=== PATIENT | male | born 1955 | race Caucasian/White ===

== ENCOUNTER 2023-11-25 06:22 | Inpatient (IN) | payer OTHER, SELFPAY ==
[2023-11-25] VITALS (18 sets, daily range): BP systolic 69–169; BP diastolic 54–101; BMI 32.3; BMI 31.1
[2023-11-25] MEDS: MAALOX 40 PO (03:13)
--- NOTE | 2023-11-25 03:17 | ED.GENMED ---
History of Present Illness
General
Chief Complaint: Abdominal Pain
Source: patient and family
Exam Limitations: none
Time Seen by Provider: 11/25/23 02:25
Nursing documentation reviewed up to this point in time: agreed with
Travel History
Have you had any contact with someone who has COVID-19?: No
Do you have any symptoms of coronavirus? Fever > 100 degrees, chills, cough, shortness of breath, sore throat, loss of taste or smell, muscle aches, or headache?: No
History of Present Illness
History of Present Illness:
This a pleasant 67-year-old male that presents with epigastric pain. He states that it has been bothering him for about 3 days. He does report that it came on suddenly after eating food and has persisted. Patient denies chest pain or shortness of
breath. He denies fever, chills, nausea or vomiting. Patient has a past medical history significant for atrial fibrillation. He was on NOACs but had bleeding issues so he is currently not on any anticoagulation. He does have hypertension for
which she is on metoprolol. States that food exacerbates his symptoms
Past History
Past History
ED Past Medical History: Arrthythmia
ED Past Surgical History: None
Social History
Personal:
Living: with family
Review of Systems
Review of Systems
Allergies reviewed?: Yes
All Other Systems: ROS reviewed and negative except as documented in HPI and ROS
Constitutional: Reports no symptoms
EENT: Reports no symptoms
Respiratory: Reports no symptoms
Cardiac: Reports chest pain
ABD/GI: Reports abdominal pain
: Reports no symptoms
Musculoskeletal: Reports no symptoms
Skin: Reports no symptoms
Neurological: Reports no symptoms
Endocrine: Reports no symptoms
Hematologic/Lymphatic: Reports no symptoms
Psychiatric: Reports no symptoms
Phy Exam
General Physical Exam
General Presentation: well appearing and no apparent distress
General Skin: warm and dry
General Habitus: normal
General Mental: alert
General Hydration: appears well hydrated
ENT Exam
ENT Exam: EOMI, pharynx normal, neck supple and normocephalic
Eye Exam
Eye Exam: PERRL, cornea clear and conjunctiva normal
Cardiovascular Exam
Cardiovascular Exam: regular rate/rhythm, no edema, no murmur and normal peripheral pulses
Pulmonary Exam
Pulmonary Exam: lungs clear, no respiratory distress, no rales, no crackles, no rhonchi, no stridor, no wheezing and no cough
Gastrointestinal Exam
Gastrointestinal Exam: normal bowel sounds, soft, no organomegaly, no pulsatile mass and non distended
Palpation: generalized: Minimal tenderness (Epigastric)
Neurological Exam
Neurological Exam: alert, oriented x3, no motor deficits and speech normal
Musculoskeletal Exam
Musculoskeletal Exam: full ROM and no edema
Skin Exam
Skin Exam: normal color, warm/dry, no rash and no petechia
Psychiatric Exam
Psychiatric Exam: normal mood/affect
Course
Orders/Labs/Results
Orders:
Orders
11/25/23 03:04
Mag Hydrox/Al Hydrox/Simeth [Maalox] 30 ml Phenobarb/Hyoscy/Atropine/Scop [] 10 ml PO NOW
US Abdomen Complete/Upper Urgent
Comment:
Reason For Exam: epigastric ruq pain
11/25/23 03:05
Electrocardiogram (*1) Urgent
Reason for Study: Abdominal Pain
EKG- Treatment ONCE
11/25/23 03:09
Mag Hydrox/Al Hydrox/Simeth [Maalox] 30 ml .ROUTE .STK-MED ONE
Phenobarb/Hyoscy/Atropine/Scop [] 10 ml .ROUTE .STK-MED ONE
11/25/23 03:28
Complete Blood Count/With Diff Urgent
Comprehensive Metabolic Panel Urgent
Lipase Urgent
PTT Urgent
Prothrombin Time Urgent
Troponin I Urgent
Urinalysis Reflex To Culture Urgent
Date Specimen was Collected: 11/25/23
Time Specimen was Collected: 03:18
Urine Microscopic Reflex Cult Urgent
11/25/23 04:19
CT Abd/pelvis W Iv Cont Urgent
Comment:
Reason For Exam: upper abd pain
11/25/23 06:12
Admit/Transfer Patient As Directed
Co-Sign Provider:
Level of Care: Inpatient admission
Assign to:: Telemetry
Physician / Group: Raul
Diagnosis: Acute Cholecystitis
Reason for Telemetry: Arrhythmia
Date to Stop Telemetry: 11/28/23
Time to Stop Telemetry: 11:00
Reason for Hospitalization: Acute Cholecystitis
Expected length of stay greater than two midnights?: Yes
ELOS- Estimated Length of Stay in days: 3
I certify the patient meets the requirements for IP care: Yes
Code Status As Directed
Resuscitation Status: Full Code
11/25/23 06:16
Ketorolac [Toradol] 30 mg IV NOW STA
Metoprolol [Lopressor] 2.5 mg IV NOW STA
11/28/23 11:00
DC Protocol for Telemetry ONCE
Abnormal Lab Results
11/25/23
03:28
WBC 20.9 H 10^3/uL
(4.8-10.8)
Hgb 18.5 H g/dL
(13.0-18.0)
Hct 52.4 H %
(39.0-52.0)
MCH 31.2 H pg
(27.0-31.0)
Abs Immat Gran (auto) 0.1 H 10^3/uL
(0-0.05)
Absolute Neuts (auto) 17.5 H 10^3/uL
(1.4-6.5)
Absolute Lymphs (auto) 1.1 L 10^3/uL
(1.2-3.4)
Absolute Monos (auto) 2.1 H 10^3/uL
(0.1-0.6)
Neutrophils % 83.9 H %
(42.2-75.2)
Lymphocytes % 5.2 L %
(20.5-51.1)
Monocytes % 10.2 H %
(1.7-9.3)
PT 15.5 H Sec
(11.4-14.6)
Sodium 133 L mmol/L
(135-145)
Glucose 127 H mg/dl
(70-99)
Urine Ketones 3+ A
(Negative)
Ur Occult Blood Reflex 1+ A
(Negative)
Urine Bilirubin 1+ A
(Negative)
Urine Bacteria (Reflex) Few A
(Negative)
11/25/23 03:28
11/25/23 03:28
Vital Signs
Initial and Last Documented VS:
Initial Vital Signs
Temp Pulse Resp BP Pulse Ox
98.1 F 94 18 105/75 98
11/25/23 02:17 11/25/23 02:17 11/25/23 02:17 11/25/23 02:17 11/25/23 02:17
Last Documented Vital Signs
Temp Pulse Resp BP Pulse Ox
98.1 F 128 35 156/101 94
11/25/23 02:17 11/25/23 06:43 11/25/23 05:30 11/25/23 06:43 11/25/23 05:30
*Critical Care Note
Total Time (30-74mins, 75-104mins- exclusive of procedures): Not Applicable
Update Note
Update Note:
US abdomen complete
IMPRESSION:
-Echogenic hepatic parenchyma, suggestive of hepatic steatosis. No focal liver mass where seen. Smooth capsular contours. Hepatopetal portal venous flow.
-The gallbladder contains moderate sludge and possible granular gallstones. Mild gallbladder wall thickening, although no associated distention or pericholecystic fluid. Reported negative sonographic Dong sign. Overall, findings are not highly
suggestive of acute cholecystitis; the wall thickening may be reactive to adjacent hepatic pathology or represent third spacing in the setting of mild volume overload.
-No significant intrahepatic or extrahepatic biliary ductal dilation, although the CBD is not well-visualized.
-Pancreas obscured by bowel gas.
-No hydronephrosis or nephrolithiasis in the bilateral kidneys. Exophytic cyst arising from the interpolar kidney measures up to 5.7 cm.
-Normal spleen, 8.5 cm.
-Nonaneurysmal mid to distal abdominal aorta, obscured in the upper abdomen.
CT abdomen/pelvis with contrast
Comparison: Same date US abdomen
IMPRESSION:
CT appearance of the gallbladder is concerning for acute cholecystitis. Although the gallbladder is not markedly distended, it contains gallstones and demonstrates circumferential wall thickening with pericholecystic inflammatory stranding. There
is no biliary ductal dilation to suggest choledocholithiasis.
Additional findings:
-Moderate to severe emphysema at the lung bases. Mild cardiomegaly.
-Background of mild steatosis; probable cyst in the left lobe of the liver. Normal pancreas, spleen and adrenal glands.
-No hydronephrosis or ureterolithiasis. Exophytic cyst at the upper pole of the right kidney, 6.3 cm. No striated nephrogram. Unremarkable urinary bladder.
-No small bowel obstruction or significant wall thickening. Normal appendix. No colitis, diverticulitis, or significant constipation. Small fat-containing umbilical hernia. Evidence of bilateral inguinal hernia repair with plugs.
-No abdominal aortic aneurysm or retroperitoneal hemorrhage. Mild to moderate atherosclerotic calcification.
-No acute osseous abnormality. Multilevel degenerative disc and facet disease in the lumbar spine, as well as mild bilateral hip arthrosis.
ED Attending Note
-
Portions of this chart may have been created with voice recognition software.� Occasional wrong word or��sound alike� substitutions may have occurred due to the inherent limitations of voice recognition software.
Discharge Plan
Departure
Patient Disposition: Admit
Date of Disposition: 11/25/23
Time of Disposition: 05:47
Admit to: Telemetry
Presentation/result/management discussed w/ accepting MD/DO: Hospitalist
Condition: Good
Discharge Problem:
Abdominal pain, Atrial fibrillation
Interventions
Interventions:
*Risk Screen - Suicide Last Done: 11/25/23 02:17
*General Assessment Last Done: 11/25/23 02:17
*Neglect/Abuse Screening Last Done: 11/25/23 02:17
ED- Fall Risk Assessment Last Done: 11/25/23 02:17
*ED COVID-19 Vaccine History Last Done: 11/25/23 02:17
IC-Ppkdhg-Fiqybcdwja Assessment Last Done: 11/25/23 03:10
[2023-11-25 03:46] LABS: % Basophils 0.2 % (0-2); % Immature Granulocytes 0.5 % (0-0.5); % Lymphocytes 5.2 % (20.5-51.1); % Monocytes 10.2 % (1.7-9.3); % Neutrophils 83.9 % (42.2-75.2); Absolute Basophils 0.1 10^3/uL (0-0.2); Absolute Immature Granulocytes 0.1 10^3/uL (0-0.05); Absolute Lymphocytes 1.1 10^3/uL (1.2-3.4); Absolute Monocytes 2.1 10^3/uL (0.1-0.6); Absolute Neutrophils 17.5 10^3/uL (1.4-6.5); Hematocrit 52.4 % (39.0-52.0); Hemoglobin 18.5 g/dL (13.0-18.0); Mean Corp Hgb Conc. 35.3 g/dL (33.0-37.0); Mean Corpuscular Hgb 31.2 pg (27.0-31.0); Mean Corpuscular Volume 88.4 fL (80.0-94.0); Mean Platelet Volume 10.3 fL (7.4-10.4); Nucleated Red Blood Cells % 0 % (-); Platelet Count 263 10^3/uL (130-400); Red Blood Cell Count 5.93 10^6/uL (4.70-6.10); Red Cell Dist. Width 12.2 % (11.5-14.5); White Blood Cell Count 20.9 10^3/uL (4.8-10.8)
[2023-11-25 03:48] LABS: Urine Albumin Trace (Neg - Trace); Urine Bilirubin 1+ (Negative); Urine Character Clear (Clear); Urine Color Yellow; Urine Glucose Negative (Negative); Urine Ketone 3+ (Negative); Urine Leukocyte Negative (Negative); Urine Nitrite Negative (Negative); Urine Occult Blood 1+ (Negative); Urine Urobilinogen 1+ (Neg - 1+)
[2023-11-25 03:55] LABS: INR 1.25; PT 15.5 Sec (11.4-14.6)
[2023-11-25 03:56] LABS: APTT 30.3 Sec (23.4-35.0)
[2023-11-25 03:59] LABS: ALT (SGPT) 29 U/L (0-50); AST (SGOT) 41 U/L (17-59); Albumin 4.6 g/dl (3.5-5.0); Alkaline Phosphatase 77 U/L (38-126); Blood Urea Nitrogen 16 mg/dl (9-20); Calcium 9.8 mg/dl (8.4-10.2); Carbon Dioxide 26 mmol/L (22-30); Chloride 99 mmol/L (98-107); Glucose 127 mg/dl (70-99); Lipase 26 U/L (23-300); Potassium 4.2 mmol/L (3.5-5.1); Sodium 133 mmol/L (135-145); Total Bilirubin 1.3 mg/dl (0.2-1.3); eGFR > 60.00
[2023-11-25 04:05] LABS: Urine Bacteria Few (Negative); Urine Mucus Moderate; Urine Red Blood Cell 0-2 /HPF (0-2); Urine Squamous Cell 0-2 /LPF (Few); Urine White Cell 0-2 /HPF (0-5)
[2023-11-25 04:11] LABS: Troponin I < 0.012 ng/ml
--- NOTE | 2023-11-25 06:16 | HPS.HSE ---
Family Physician
-
Family Physician: Kerry Pena MD
Chief Complaint
-
Abd Pain
History of Present Illness
Patient is a 67y M with PMH significant for A-Fib who presents to ED complaining of abdominal pain. Patient states that his symptoms started suddenly on Saturday evening with pain in the epigastric region. Patient states that pain is dull and
feels like he was 'punched in the solar plexus'. He initially had shaking chills and profuse sweating on Saturday evening as well. This has not recurred. His pain has been persistent however - rating a constant 5/10 in severity. there is no
radiation to the lower abdomen or to the back. No N/V/D. No other current complaints or concerns. Patient denies any prior history of similar symptoms.
Patient has permanent atrial fibrillation but is not on any current prescription medications. He takes baby ASA daily. He had issues with recurrent epistaxis when on anticoagulation in the past.
Medical History
Past Medical History
Past Medical History: Reports Other
Additional Past Medical History:
Permanent Atrial Fibrillation
Hypertension
Interstitial Lung Disease
Past Surgical History: Reports Other
Additional Past Surgical History:
Right Rotator Cuff Repair
Bilateral Inguinal Herniorrhaphy
Left Trigger Finger Surgery
Social History
Tobacco: Non-smoker
Alcohol: Occasional
Drug: None
Family History
Family History: Not pertinent
Allergies / Home Medications
Allergies reflects when Allergies were last updated in [employer].
Home Medications with original date entered in [employer]
Allergy/Medication List:
Allergies
Allergy/AdvReac Type Severity Reaction Status Date / Time
No Known Allergies Allergy Verified 11/25/23 02:16
Home Medications
aspirin 81 mg chewable tablet 81 mg PO DAILY 11/25/23
cholecalciferol (vitamin D3) 25 mcg (1,000 unit) tablet 25 mcg PO DAILY 11/25/23
multivitamin 1 tab PO DAILY 11/25/23
saw palmetto 500 mg capsule 500 mg PO BID 11/25/23
Review of Systems
-
History Source: Patient
A 12 point ROS was completed and negative except as noted: Yes
Constitutional: Reports Fever, Night Sweats and Chills; Denies Fatigue
EENT: Denies Sore Throat
Respiratory: Denies Cough or Trouble Breathing
Cardiac: Denies Chest Pain or Palpitations
Abdomen/GI: Reports Abdominal Pain; Denies Nausea, Vomiting or Diarrhea
: Denies Dysuria, Frequency or Flank Pain
Neurological: Denies Dizzy or Headache
Psych: Denies Depression or Anxiety
Physical Exam
Vital Signs
Vital Signs
Temp Pulse Resp BP Pulse Ox
98.1 F 140 35 169/86 94
11/25/23 02:17 11/25/23 05:30 11/25/23 05:30 11/25/23 04:00 11/25/23 05:30
Physical Exam
General: Other (67y M in mild distress due to abdominal pain.)
HEENT: Moist mucous membranes
Respiratory: Clear; No Wheezes, Rales or Rhonchi
Cardiac: S1/S2, Irregular Rhythm, Tachycardia and Murmur (II/ GASPER)
GI: Soft, Non Distended, Normal Bowel Sounds and Other (Pos RUQ tenderness without rebound or guarding.)
Musculoskeletal: No Clubbing, No Cyanosis and No Edema
Neuro: AO x 3
Laboratory Results
-
11/25/23 03:28
11/25/23 03:28
Laboratory Results
PT 15.5 Sec (11.4-14.6) H 11/25/23 03:28
INR 1.25 11/25/23 03:28
APTT 30.3 Sec (23.4-35.0) 11/25/23 03:28
Total Bilirubin 1.3 mg/dl (0.2-1.3) 11/25/23 03:28
AST 41 U/L (17-59) 11/25/23 03:28
ALT 29 U/L (0-50) 11/25/23 03:28
Alkaline Phosphatase 77 U/L (38-126) 11/25/23 03:28
Troponin I < 0.012 ng/ml 11/25/23 03:28
Lipase 26 U/L (23-300) 11/25/23 03:28
Impression/Plan
-
A/P: Patient is a 67y M with PMH significant for A-Fib who presents to ED complaining of abdominal pain x 3 days.
Acute Calculous Cholecystitis
- Admit for further evaluation and treatment.
- US and CT show sludge, GB wall thickening and surrounding stranding / inflammation.
- IV abx.
- Supportive care with IVFs, antiemetics and pain control.
- Surgery evaluation for eventual cholecystectomy.
- Follow for improvement in symptoms.
Permanent Atrial Fibrillation
- Heart rates in the ED are at times elevated - in part due to pain.
- Patient is not on any rate-controlling medications at baseline.
- Monitor on telemetry.
- Begin IV Lopressor at standing doses with holding parameters for now for rate control.
- Patient is not on any chronic anticoagulation.
- Hold ASA for now for possible interventions / procedures.
- Adjust meds as needed for adequate rate control perioperatively.
- Will ask Cardiology to evaluate.
Interstitial Lung Disease
- Stable. No current or recent complaints.
- Not presently hypoxemic, etc.
- Most recent pulmonary testing as an outpatient showed significant improvement from prior.
- Follow for any changes.
DVT Prophylaxis: SCDs
Code Status: Full
[2023-11-25] MEDS: TORADOL 30 MG IV (06:40)
[2023-11-25] MEDS: LOPRESSOR 2.5 MG IV ×2 (06:43→11:58)
[2023-11-25] MEDS: NSS 1000 IV ×2 (08:51→17:50)
--- NOTE | 2023-11-25 08:56 | CON.GS ---
Addendum entered and electronically signed by Donald Cook MD 11/25/23 09:59:
I saw and examined the patient independently.
The Fuel Cell Assembler's note was reviewed and I agree with the note, assessment and plan except where noted below.
Comment: Is a 67-year-old male with a history of open bilateral inguinal hernia repairs, A-fib not on anticoagulation, who presents with epigastric and right upper quadrant pain x 3 days with chills and sweats. The patient denies Fever, Chest Pain,
Shortness Of Breath, Nausea, Vomiting, changes in urinary and bowel habits, unintentional weight loss, jaundice, icterus, acolic stools.
Will plan for a laparoscopic cholecystectomy and cholangiogram today.
N.p.o., IV fluids, IV antibiotics.
Risks/Benefits/Alternatives, expected postoperative course and possible complications (bleeding, infection, injury to surrounding structures, acute/chronic pain) discussed at length. Patient wishes to proceed with surgery. All questions answered.
Consent obtained.
I spent roughly 60 minutes in total for the care of this patient today including direct patient care and counseling, reviewing labs, imaging, coordination of care, as well as documentation.
Original Note:
Consultation
-
Date/Time Consultation Requested: 11/25/23 0734
Requesting Provider: Francesco
Performing Provider: Sarath Cook
Medical History
-
Chief Complaint: Abdominal pain
History of Present Illness:
This is a 67 yo male with a h/o BL inguinal hernia repairs, afib off AC d/t severe epistaxis, HTN, ILD who presents with epigastric/RUQ abdominal pain which began 4 days ago accompanied by chills and sweats. His pain improved the following day but
quickly returned and remained persistent. He has had no further chills. He presented for evaluation overnight given his persistent symptoms. He denies nausea or vomiting. On exam, he has tenderness to the RUQ.
Past Medical History
Past Medical History: Arrhythmias (afib), HTN and Other (ILD)
Past Surgical History: Hernia Repair (BL inguinal hernia repairs) and Orthopedic (right rotator cuff surgery, left hand surgery)
Social History
Tobacco: Non-Smoker
Alcohol: Occasional
Personal:
Living: With Family
Family History
Family History: Reviewed & Not Pertinent
Allergies / Home Medications
Allergy/AdvReac Type Severity Reaction Status Date / Time
No Known Allergies Allergy Verified 11/25/23 02:16
Medication Instructions Recorded Confirmed Type
aspirin 81 mg chewable tablet 81 mg PO DAILY 11/25/23 11/25/23 History
cholecalciferol (vitamin D3) 25 25 mcg PO DAILY 11/25/23 11/25/23 History
mcg (1,000 unit) tablet
multivitamin 1 tab PO DAILY 11/25/23 11/25/23 History
saw palmetto 500 mg capsule 500 mg PO BID 11/25/23 11/25/23 History
Review of Systems
-
History Source: Patient
All other systems: Negative unless noted
A 10 point review of systems was completed, and was negative except as per HPI.
Physical Exam
Vital Signs
Temp Pulse Resp BP Pulse Ox
98.8 F 91 18 126/86 96
11/25/23 07:41 11/25/23 07:41 11/25/23 07:41 11/25/23 07:41 11/25/23 07:41
11/24/23 11/25/23 11/26/23
06:59 06:59 06:59
Actual Weight 102 kg 98.174 kg
Body Mass Index (BMI) 31.1
Lab Results
11/25/23 03:28
11/25/23 03:28
WBC 20.9 10^3/uL (4.8-10.8) H 11/25/23 03:28
Hgb 18.5 g/dL (13.0-18.0) H 11/25/23 03:28
Hct 52.4 % (39.0-52.0) H 11/25/23 03:28
Plt Count 263 10^3/uL (130-400) 11/25/23 03:28
Abs Immat Gran (auto) 0.1 10^3/uL (0-0.05) H 11/25/23 03:28
Neutrophils % 83.9 % (42.2-75.2) H 11/25/23 03:28
Physical Exam
General: Well Developed and Well Nourished
HEENT: Moist Mucous Membranes
Respiratory: Non Labored Respirations
GI: Soft and Tender (RUQ)
Skin: Warm and Dry
Neuro: Awake, Alert and AO x 3
Psych: Calm
Data Reviewed
-
CT Scan: Image Personally Visualized and interpreted, Report Reviewed by me, Discussed with Physician and Discussed with Patient
Ultrasound: Image Personally Visualized and interpreted, Report Reviewed by me, Discussed with Physician and Discussed with Patient
Labs: Labs Reviewed by me, Discussed with Physician and Discussed with Patient
Old Records: Reviewed
Assessment / Plan
-
Assessment:
This is a 67 yo male with a h/o AFib off AC and BL hernia repair who presents with 4 day history of RUQ with chills and sweats on day of onset of symptoms. Leukocytosis present with US and CT imaging as well as exam consistent with acute calculous
cholecystitis. Afebrile since presentation
Plan:
Keep NPO for OR later today for laparoscopic cholecystectomy
Continue IV Zosyn
Follow labs/blood cultures
[2023-11-25] MEDS: NSS (PRESERVATIVE FREE) 10 ML IV (08:59)
[2023-11-25] MEDS: ZOSYN 50 IV ×3 (08:59→20:53)
[2023-11-25] MEDS: PROTONIX IV 40 MG IV (08:59)
--- NOTE | 2023-11-25 09:23 | PTCARENOTE ---
pt presents from ED via stretcher. pt is AAO*3, Vss on room air. pt states pain is 0 out of 10 as pt received pain meds prior to being transferred up to [facility]. pt is NPO scheduled for OR this afternoon. pt is oriented to the room. call rocha within
the reach. will continue plan of care.
--- NOTE | 2023-11-25 10:18 | CON.CAR ---
Addendum entered and electronically signed by Thien Yung DO 11/25/23 13:31:
I saw and examined the patient.
The Signal Supervisor's note was reviewed and I agree with the note.
Comment:
Plan:
He appears compensated from a cardiac standpoint and does not require additional testing at this time.
Cont HR and bp control
He declines HR control meds and anticoagulation for his AFib which is permanent. He understands his elevated stroke risk.
Reviewed with at bedside.
Original Note:
Consultation
Consultation Request
Date/Time Consultation Requested: 11/25/2023
Date/Time Consultation Performed: 11/25/2023 at 0945
Requesting Provider: Dr. Carter
Performing Provider: Dr. Yung
Reason for Consultation: Afib, cholecystitis
Medical History
-
History of Present Illness:
HPI: Poncho is a 67 year old male with PMH of permanent atrial fibrillation and interstitial lung disease who presented to [facility] for evaluation of RUQ abdominal pain. Pain started on Saturday night and has been progressively worsening throughout the
weekend. He came to [facility] and was found to have evidence of acute cholecystitis on arrival with WBC 20.9 and abdominal US with stones and sludge noted in the gallbladder with mild wall thickening. He was started on IV antibiotics and admitted for
further workup and evaluation. Cardiology asked to evaluate patient as HRs have been elevated. Remains in permanent atrial fibrillation. He does not take any rate control medications and is not anticoagulated by patient choice. Surgery evaluated
patient this AM and plan is to go to OR later today for cholecystectomy. At this time he has no complaints other than abdominal pain. Denies chest pain, palpitations, dizziness, lightheadedness, LE edema or SOB.
PMH:
Permanent atrial fibrillation
Not anticoagulated by patient choice
Interstitial Lung Disease
Past Medical History
Past Medical History: Other (In HPI)
Past Surgical History: Other (b/l inguinal hernia repair, R rotator cuff surgery, L hand tendon repair)
Social History
Tobacco: Non-Smoker
Alcohol: Occasional
Drug: None
Personal:
Living: With Family
Family History
Family History: CAD and Cancer
Allergies / Home Medications
Allergy/AdvReac Type Severity Reaction Status Date / Time
No Known Allergies Allergy Verified 11/25/23 02:16
Medication Instructions Recorded Confirmed Type
aspirin 81 mg chewable tablet 81 mg PO DAILY 11/25/23 11/25/23 History
cholecalciferol (vitamin D3) 25 25 mcg PO DAILY 11/25/23 11/25/23 History
mcg (1,000 unit) tablet
multivitamin 1 tab PO DAILY 11/25/23 11/25/23 History
saw palmetto 500 mg capsule 500 mg PO BID 11/25/23 11/25/23 History
Review of Systems
-
History Source: Patient
All other systems: Negative unless noted
Physical Exam
Vital Signs
Temp Pulse Resp BP Pulse Ox
98.8 F 91 18 126/86 96
11/25/23 07:41 11/25/23 07:41 11/25/23 07:41 11/25/23 07:41 11/25/23 09:22
Lab Results
11/25/23 03:28
11/25/23 03:28
Troponin I < 0.012 ng/ml 11/25/23 03:28
Physical Exam
General: Well Developed, Well Nourished and No Apparent Distress
HEENT: Normocephalic, Anicteric and Moist Mucous Membranes
Respiratory: Clear and Non Labored Respirations
Cardiac: S1/S2 and Irregular Rhythm
Musculoskeletal: No Clubbing, No Cyanosis and No Edema
Skin: Warm and Dry
Neuro: AO x 3
Psych: Calm
Impression / Plan
-
PCP: Dr. Pena
Trampoline Team Coach: Dr. Lofton
Impression:
Presented with RUQ abdominal pain
Acute cholecystitis
Permanent atrial fibrillation
Not anticoagulated by patient choice
Interstitial Lung Disease
Echo 11/06/2021: EF 55-60%, mild to moderate MR, mild TR, estimated PAP 31 mmHg
Plan:
-Presented with RUQ abdominal pain. Found to have acute cholecystitis. Continue IV antibiotics per primary service.
-Plan is for surgical cholecystectomy later today.
-Remains in permanent atrial fibrillation by EKG. HR running in 90s to 100s. Continue IV lopressor for rate control.
-Not on rate control medication as OP. Follow HRs post-op. May consider d/c on beta lani, however unclear if patient would be agreeable.
-Not on anticoagulation by patient choice. Aware of increased stroke risk. Continues on aspirin alone, however this is on hold currently pre-op.
-Resume aspirin once able from a surgical standpoint.
HPI: Poncho is a 67 year old male with PMH of permanent atrial fibrillation and interstitial lung disease who presented to [facility] for evaluation of RUQ abdominal pain. Pain started on Saturday night and has been progressively worsening throughout the
weekend. He came to [facility] and was found to have evidence of acute cholecystitis on arrival with WBC 20.9 and abdominal US with stones and sludge noted in the gallbladder with mild wall thickening. He was started on IV antibiotics and admitted for
further workup and evaluation. Cardiology asked to evaluate patient as HRs have been elevated. Remains in permanent atrial fibrillation. He does not take any rate control medications and is not anticoagulated by patient choice. Surgery evaluated
patient this AM and plan is to go to OR later today for cholecystectomy. At this time he has no complaints other than abdominal pain. Denies chest pain, palpitations, dizziness, lightheadedness, LE edema or SOB.
Data Reviewed
-
EKG: Tracing Personally Visualized and interpreted
CT Scan: Report Reviewed by me
Ultrasound: Report Reviewed by me
Labs: Labs Reviewed by me
Old Records: Reviewed
--- NOTE | 2023-11-25 11:13 | CM ---
Patient seen bedside, initial assessment completed. Patient reports he lives with his and dog in a [place] with a basement. Per patient, they typically do not use the basement. Patient denies DME, VN, or SNF. Patient reports his will
provide transportation home when he is ready for discharge. Patient confirms PCP Dr. Pena, pharmacy [facility] in [place]. CM will continue to follow for discharge planning needs.
Plan; home no needs anticipated.
--- NOTE | 2023-11-25 11:43 | W.PN.HOSP.TC ---
Today's Communication/Plan
-
Monitor vital signs and see plan
N.p.o.
OR today
Continue abx
nonbillable note
Assessment / Plan
Assessment / Plan
Acute Calculous Cholecystitis
�- US and CT show sludge, GB wall thickening and surrounding stranding / inflammation.
�- IV abx.
�- Supportive care with IVFs, antiemetics and pain control.
�-Surgery following, plan for OR today
Permanent Atrial Fibrillation
�- Heart rates in the ED are at times elevated - in part due to pain.
�- Patient is not on any rate-controlling medications at baseline.
�- Monitor on telemetry.
�- Begin IV Lopressor at standing doses with holding parameters for now for rate control.
�- Patient is not on any chronic anticoagulation by his
�- Hold ASA for now for possible interventions / procedures.
Cardiology following.
hyponatremia
monitor
Interstitial Lung Disease
�- Stable.� No current or recent complaints.
�- Not presently hypoxemic, etc.
�- Most recent pulmonary testing as an outpatient showed significant improvement from prior. Patient follows up with Dr. Mcknight outpatient
DVT Prophylaxis:� SCDs
Code Status:� Full
General: Other (67y M in mild distress due to abdominal pain.)
HEENT: Moist mucous membranes
Respiratory: Clear; No Wheezes, Rales or Rhonchi
Cardiac: S1/S2, Irregular Rhythm, Tachycardia and Murmur (II/ GASPER)
GI: Soft, Non Distended, Normal Bowel Sounds and Other (Pos RUQ tenderness without rebound or guarding.)
Musculoskeletal: No Clubbing, No Cyanosis and No Edema
Neuro: AO x 3
Anticipated Discharge: 24 - 48 hours
Subjective/Interval History
-
Date of Service: November 25, 2023
Have some abdominal pain
Objective Data
-
Labs:
Laboratory Results
11/25/23
03:28
WBC 20.9 H
Hgb 18.5 H
Hct 52.4 H
Plt Count 263
PT 15.5 H
INR 1.25
APTT 30.3
Sodium 133 L
Potassium 4.2
Chloride 99
Carbon Dioxide 26
BUN 16
Creatinine 0.8
Glucose 127 H
Calcium 9.8
Total Bilirubin 1.3
AST 41
ALT 29
Alkaline Phosphatase 77
Vital Signs:
Vital Signs
Temp Pulse Resp BP Pulse Ox
98 F 107 18 149/98 98
11/25/23 11:00 11/25/23 11:00 11/25/23 11:00 11/25/23 11:00 11/25/23 11:00
--- NOTE | 2023-11-25 12:02 | W.SUR.PREOP ---
Pre-Operative Surgical Note
-
I have examined this patient prior to the performance of the scheduled procedure.
The patient's condition is unchanged from the time of the current History and
Physical and the patient is able to undergo the scheduled procedure.
--- NOTE | 2023-11-25 13:03 | PTCARENOTE ---
pt's HR in 150's-160's when moving or standing. goes down to 100's when sitting. pt received IV lopressor as scd at noon. Cards notified. no new orders at this time. pt is on his way to OR.
--- NOTE | 2023-11-25 15:50 | W.IMMPOSTOP ---
Surgical Immed Post Op Note
-
Primary Surgeon: Donald Cook MD
Assisting Surgeon: None
Pre-op Diagnosis: Acute cholecystitis
Post-op Diagnosis: Gangrenous cholecystitis
Procedure Performed: Laparoscopic cholecystectomy and cholangiogram
Anesthesia Type: General
Specimen / Cultures: Gallbladder and contents
Estimated Blood Loss: 11 cc
Complications: None
Operative Findings: Acutely inflamed, necrotic appearing gallbladder with thick omental adhesions. There was a dense area of scar in the upper third of the gallbladder that caused fold of the gallbladder unclear if there was an underlying mass or
that this was just from inflammation. The triangle of Calot was densely inflamed and it was difficult to identify a true plane consistent with more chronic cholecystitis appearance. A true cystic duct artery was not identified but a branch of it
was ligated near the cystic duct as well as an additional posterior branch along the gallbladder fossa along the lower third of the gallbladder. 1 black pigmented gallstone was milked out of the cystic duct after a ductotomy was made followed by a
cholangiogram which demonstrated normal biliary anatomy and no filling defects. There was brisk flow of contrast into the duodenum. The duct was ligated with two 5 mm titanium clips followed by a 0 PDS Endoloop. Given the degree of pus and
contamination, a 19 Turkish round Cortez drain was placed in the right upper quadrant. There was spillage of bile and stones, the right upper quadrant was flooded and suctioned until clear. All stones were removed.
POST OP PLAN:
Imaging: None
Labs: Routine AM
Diet: Clears tonight, okay for regular diet tomorrow.
Analgesia: Tylenol 650mg q6 Cassi, Yen 5mg q6 PRN, Dilaudid 0.5mg q2h PRN
Neuro/vascular checks: q4h
AC/AP: Hold Therapeutic AC, Ok for DVT PPx
Activity: Ad Archana
Wound/Incisions/Drains: KENDRICK to bulb suction, okay to DC prior to discharge pending clinical course and output.
Abx: Continue antibiotics x 4 days can switch to p.o. on discharge.
Dispo: RNF
--- NOTE | 2023-11-25 15:55 | OR.RPT ---
Operative Report
Operative Report
Patient Name: Poncho Greenwood
: 1955
Date of Operation: 11/25/2023
Preoperative Diagnosis: Acute cholecystitis
Postoperative Diagnosis: Gangrenous cholecystitis
Procedure(s):
Laparoscopic Cholecystectomy with Cholangiogram
Surgeon(s):
Dr. Cook
Manager Fast Food(s):
MICHEAL Jordan
Anesthesia: General
Estimated Blood Loss: 11 cc
Urine Output: None
Drains/Lines/Implants: 19 Citizen [place] round Cortez drain to bulb suction
Specimens:
1. Gallbladder and contents
HPI/Surgical Indications:
This is a 67-year-old male who presents with 3 days of right upper quadrant postprandial abdominal pain. Exam, labs and imaging are consistent with acute cholecystitis. Risks/Benefits/Alternatives were discussed at length, and the patient agreed to
proceed with surgery.
Findings:
Acutely inflamed, necrotic appearing gallbladder with thick omental adhesions.� There was a dense area of scar in the upper third of the gallbladder that caused fold of the gallbladder unclear if there was an underlying mass or that this was just
from inflammation.� The triangle of Calot was densely inflamed and it was difficult to identify a true plane consistent with more chronic cholecystitis appearance.� A true cystic duct artery was not identified but a branch of it was ligated near the
cystic duct as well as an additional posterior branch along the gallbladder fossa along the lower third of the gallbladder.� 1 black pigmented gallstone was milked out of the cystic duct after a ductotomy was made followed by a cholangiogram which
demonstrated normal biliary anatomy and no filling defects.� There was brisk flow of contrast into the duodenum.� The duct was ligated with two 5 mm titanium clips followed by a 0 PDS Endoloop.� Given the degree of pus and contamination, a 19 [place]
round Cortez drain was placed in the right upper quadrant.� There was spillage of bile and stones, the right upper quadrant was flooded and suctioned until clear.� All stones were removed.
Procedure Description:
The patient was brought to the Operating Room and placed in the supine position with one arm tucked. Following uneventful induction of general endotracheal anesthesia, an orogastric tube was placed. The abdomen was prepped and draped in the usual
sterile fashion. A timeout was performed confirming the procedure, consent, and that IV antibiotics were infused and sequential compression devices were confirmed to be on. The abdomen was entered using an infraumbilical Andrew technique with a 12
mm trochar. Pneumoperitoneum to 15 mmHg pressure was obtained without difficulty and we confirmed that no injury had occurred during our entry. The patient was positioned in reverse Trendelenberg and rotated with the right side up slightly. Three
(3) 5mm trocars were then placed along the right subcostal margin. There was significant adhesions in the gallbladder including the omentum the transverse colon could readily be appreciated. These adhesions were taken down sharply with scissors and
with electrocautery. Exposure of the upper third of the gallbladder revealed a area of scar tissue versus possible mass causing in-folding of the gallbladder with the distal part of the fundus being clearly gangrenous. It was unclear whether this
was from inflammation or potential underlying mass/malignancy. We did do a cursory survey of the abdomen and noted no peritoneal implants or masses on the liver. I did scrub out briefly to review his CT scan once again to ensure our anatomy was
correct as this was a somewhat unusual finding. The gallbladder was markedly distended so was emptied using a decompressing needle through the fundus of the gallbladder with evacuation of hydrops at first followed by bile before A locking grasping
forceps was placed on the fundus of the gallbladder where it was then retracted cephalad and to the right. Using appropriate grasping instruments, the peritoneum overlying the triangle of Calot was incised and extended superiorly on both the
anterior and posterior gallbladder macdonald. This area was markedly fibrotic and that identifying the planes was quite difficult. The epigastric 5 mm port was upsized to a 12 and a 4 x 4 Ray-Eric was placed in the surgical bed to catch any bile or
stones that could leak/fall during our dissection. The infundibulum was dissected off the cystic plate. The cystic triangle was dissected until the presumed cystic duct was identified. A small branch of what was likely the cystic artery was
identified and ligated with two 5 mm clips and divided. A true cystic artery was not identified. The cystic duct/gallbladder junction was identified, dissected circumferentially and a clip was placed. A ductotomy was made and a pigmented gallstone
was milked out. A cholangiocatheter on an Turner clamp was inserted into the cystic duct. A C-arm was draped and brought into the field. An intra-operative cholangiogram was performed and was noted to have:
No filling defects in the biliary tree
No significant biliary dilation
Brisk flow of contrast into the duodenum
Normal biliary anatomy
The catheter was then removed and the cystic duct was controlled with two clips, followed by a 0 PDS Endoloop. The gallbladder was freed from the liver using electrocautery. A posterior cystic artery was identified running along the gallbladder
fossa and was clipped with 5 mm Endo Clip. There was some spillage of bile and black pigmented stones the right upper quadrant was flooded until clear and all stones were removed. The 4 x 4 Ray-Eric was removed. The gallbladder bed was inspected
and excellent hemostasis was obtained. The gallbladder was extracted through the umbilical 12 mm trocar site using an endocatch bag. The epigastric port was closed with a 0 PDS in a Ac Nagy. A 19 [place] round Cortez drain was advanced
through the most lateral 5 mm port in close in the gallbladder fossa. It was secured at the skin with a 3-0 nylon suture. The abdomen was again irrigated and excellent hemostasis was assured. All remaining trocars were then removed and the
pneumoperitoneum was evacuated. The 12 mm umbilical trocar site had to be extended to facilitate removal of the gallbladder, this was closed using a running 0 PDS suture. All trocar sites were closed at the skin level using 4-0 Monocryl followed
by Dermabond. Overall, the patient tolerated the procedure well and was taken to the Recovery Room postoperatively in stable condition.
I was the attending physician and performed the procedure with assistance from the CLINICAL QUALITY ASSURANCE ASSOCIATE above. I was present for all portions of the case
Donald Cook MD
--- NOTE | 2023-11-25 17:53 | PTCARENOTE ---
pt back from OR s/p lap kaylene. pt is AAO*3, Vss, room air. pt denies any pain or discomfort. KENDRICK drain with minimal serosanguineous output. pt is oriented to the room. call rocha within the reach. will continue plan of care.
[2023-11-26] VITALS (7 sets, daily range): BP systolic 113–178; BP diastolic 72–95; BMI 43.4
[2023-11-26] MEDS: NSS 1000 IV (01:12)
[2023-11-26] MEDS: LOPRESSOR 2.5 MG IV ×5 (01:45→23:07)
[2023-11-26] MEDS: ZOSYN 50 IV ×4 (01:47→20:33)
[2023-11-26 06:29] LABS: % Basophils 0.2 % (0-2); % Immature Granulocytes 0.7 % (0-0.5); % Neutrophils 90.1 % (42.2-75.2); Absolute Immature Granulocytes 0.1 10^3/uL (0-0.05); Absolute Lymphocytes 0.6 10^3/uL (1.2-3.4); Absolute Monocytes 1.1 10^3/uL (0.1-0.6); Hemoglobin 14.6 g/dL (13.0-18.0); Mean Corp Hgb Conc. 35.6 g/dL (33.0-37.0); Mean Corpuscular Hgb 31.5 pg (27.0-31.0); Mean Corpuscular Volume 88.4 fL (80.0-94.0); Mean Platelet Volume 10.7 fL (7.4-10.4); Nucleated Red Blood Cells % 0 % (-); Platelet Count 226 10^3/uL (130-400); Red Blood Cell Count 4.64 10^6/uL (4.70-6.10); Red Cell Dist. Width 12.6 % (11.5-14.5); White Blood Cell Count 18.9 10^3/uL (4.8-10.8)
[2023-11-26 06:40] LABS: ALT (SGPT) 38 U/L (0-50); AST (SGOT) 44 U/L (17-59); Albumin 3.1 g/dl (3.5-5.0); Alkaline Phosphatase 65 U/L (38-126); Blood Urea Nitrogen 27 mg/dl (9-20); Calcium 8.5 mg/dl (8.4-10.2); Carbon Dioxide 24 mmol/L (22-30); Chloride 101 mmol/L (98-107); Estimated Creatinine Clearance 83 ml/min; Glucose 143 mg/dl (70-99); Potassium 4.3 mmol/L (3.5-5.1); Sodium 135 mmol/L (135-145); Total Bilirubin 0.9 mg/dl (0.2-1.3); Total Protein 5.6 g/dl (6.3-8.2); eGFR > 60.00
[2023-11-26 07:25] LABS: Hepatitis C Antibody Negative (Negative)
--- NOTE | 2023-11-26 07:36 | W.PN.GS2 ---
Today's Communication / Plan
-
-- Regular diet
-- Pain control: Tylenol, Toradol, Oxycodone, IV Dilaudid for breakthrough
-- HLIV
-- Abx: Zosyn, plan for 4 days post-op
-- KENDRIKC drain to remain in place till DC
-- Tentative plan for DC tomorrow vs. later this evening
Assessment / Plan
-
Patient is a 67 yo M POD#1 s/p laparoscopic cholecystectomy with IOC
No postoperative concerns.
-- Regular diet
-- Pain control: Tylenol, Toradol, Oxycodone, IV Dilaudid for breakthrough
-- HLIV
-- Abx: Zosyn, plan for 4 days post-op
-- KENDRICK drain to remain in place till DC
-- Tentative plan for DC tomorrow vs later this evening
Subjective Data
-
Date of Service: November 26, 2023
No major complaints. Pain well-controlled, noted soreness with movement. No nausea or vomiting. No fevers.
Objective Data
-
Intake and Output
11/25/23 11/26/23 11/27/23
06:59 06:59 06:59
Intake Total 960 / 960
Output Total 1944 / 1944
Balance -985 / -985
Intake:
Oral fluids 960 / 960
Output:
Drain Output (Total)
Right Dayron-Garcia
Urine, Voided 1919
Vital Signs
Temp Pulse Resp BP Pulse Ox
97.6 F 90 18 122/83 96
11/26/23 03:13 11/26/23 03:13 11/26/23 03:13 11/26/23 03:13 11/26/23 03:13
Lab Results
11/26/23 05:39
11/26/23 05:38
Calcium 8.5 mg/dl (8.4-10.2) 11/26/23 05:38
Total Bilirubin 0.9 mg/dl (0.2-1.3) 11/26/23 05:38
AST 44 U/L (17-59) 11/26/23 05:38
ALT 38 U/L (0-50) 11/26/23 05:38
Alkaline Phosphatase 65 U/L (38-126) 11/26/23 05:38
Total Protein 5.6 g/dl (6.3-8.2) L D 11/26/23 05:38
Albumin 3.1 g/dl (3.5-5.0) L D 11/26/23 05:38
Physical Exam
-
Gen: NAD
Abd: soft, mild tenderness, ND, non-peritoneal, incisions c/d/i - no erythema, ecchymosis or drainage, KENDRICK drain serosang
[2023-11-26] MEDS: FLUSH (NSS) 2 FLUSH IV (07:47)
--- NOTE | 2023-11-26 08:24 | PN.CDI ---
CDI
- -
CDI:
Physician Documentation Request
Admit Date: 11/25/23 06:22
Dear Doctor Francesco,
Patient admitted with acute calculous cholecystitis.
On admission, WBC 20.9 and HR> 90.
Patient receiving IV Zosyn.
Please clarify which of the following most accurately describes the status of the patient's infection:
Sepsis, POA
Acute calculous cholecystitis only
Other
Sepsis
- Systemic manifestations of infection, with 2 or more SIRS criteria which include:
- Fever >100.4 degrees F or hypothermia < 96.8 degrees F
- Leukocytosis - WBC > 12,000 or leukopenia - WBC < 4,000 or > 10% bands
- Tachycardia > 90 beats per minute
- Tachypnea - RR > 20 breaths per minute or PaCO2 , 32mmHg
Source: Merck Manual 2013
- Indicate the known or suspected organism
- Indicate the known or suspected underlying infection, such as acute calculous cholecystitis
Localized Infection Only, Without Systemic Illness
- indicate the site/source, such as acute calculous cholecystitis
Other
Unable to Determine
Use of terms such as suspected, likely, concern for, or probable (associated with a specific diagnosis that is being evaluated, monitored, or treated as if it exists) are acceptable and can be coded in the inpatient setting, when documented at the
time of discharge.
Thank you,
Kerry LUIS,RN,CCDS
CDI Specialist
Available via [facility] text
Please use your independent medical judgment in providing your response.
[2023-11-26] MEDS: NSS (PRESERVATIVE FREE) 10 ML IV (09:05)
[2023-11-26] MEDS: PROTONIX IV 40 MG IV (09:05)
[2023-11-26] MEDS: TORADOL 10 MG IV (09:15)
--- NOTE | 2023-11-26 11:05 | CM ---
Patient seen bedside, reports no new concerns. Patient reports he believes he will be discharging tomorrow. Patient reports his will provide transportation home. CM will continue to follow for discharge planning needs.
Plan; home no needs anticipated.
--- NOTE | 2023-11-26 11:28 | W.PN.CARDCBS ---
Addendum entered and electronically signed by Marcelino Bowden MD 11/26/23 13:48:
I saw and examined the patient.
The GROMMET WORKER or PA's note was reviewed and I agree with the note.
Comment: General: Well developed, well nourished in NAD.
Neck: Supple, no JVD, HJR, carotids +2 B/L, no bruits bilaterally.
Heart: Non displaced PMI, irregular, no murmurs, No S3, S4, no rubs.
Lungs: Clear to auscultation bilaterally, no wheeze, rhonchi, rubs bilaterally,
normal expiratory phase.
Abdomen: Normal bowel sounds, soft, non-tender, non-distended.
Extremities: No clubbing, cyanosis or edema bilaterally.
Neuro: Grossly nonfocal, awake, alert and oriented x3.
Stable cardiology status. He continues to decline outpatient treatment with anticoagulation or rate controlling agents. He already has follow-up visit with Dr. Lofton in December 2023. Will sign off, call with questions
Original Note:
Today's Communication / Plan
-
No cardiac complaints
Declining OAC and rate controlling agents
Resume ASA 81 mg once cleared by surgery
Outpt cardiology follow up arranged
Impression / Plan
-
PCP: Dr. Pena
Payment Collector: Dr. Lofton
Impression:
Presented 11/25/2023 with RUQ abdominal pain
Acute cholecystitis
s/p s/p laparoscopic cholecystectomy 11/25/23
Permanent atrial fibrillation
Not anticoagulated by patient choice
Interstitial Lung Disease
Echo 11/06/2021: EF 55-60%, mild to moderate MR, mild TR, estimated PAP 31 mmHg
Plan:
-Presented 11/25/2023 with RUQ abdominal pain. Found to have acute cholecystitis and underwent s/p laparoscopic cholecystectomy 11/25/23. Continue IV antibiotics per primary service.
-Remains in permanent atrial fibrillation by EKG. HR running in 90s to 100s. Getting IV Lopressor for rate control.
-Not on rate control medication as OP as patient self discontinued. Heart rates are elevated at times but he reports at home its in the 60-90's bpm. Discussed beta lani he declines.
-Not on anticoagulation by patient choice. He has significant epistaxis with both Eliquis and Xarelto in the past. Declined watchman in past as well. Aware of increased stroke risk pt aware and only wants ASA 81 mg. Resume aspirin 81 mg once able
from a surgical standpoint.
HPI: Poncho is a 67 year old male with PMH of permanent atrial fibrillation and interstitial lung disease who presented to [facility] for evaluation of RUQ abdominal pain. Pain started on Saturday night and has been progressively worsening throughout the
weekend. He came to [facility] and was found to have evidence of acute cholecystitis on arrival with WBC 20.9 and abdominal US with stones and sludge noted in the gallbladder with mild wall thickening. He was started on IV antibiotics and admitted for
further workup and evaluation. Cardiology asked to evaluate patient as HRs have been elevated. Remains in permanent atrial fibrillation. He does not take any rate control medications and is not anticoagulated by patient choice. Surgery evaluated
patient this AM and plan is to go to OR later today for cholecystectomy. At this time he has no complaints other than abdominal pain. Denies chest pain, palpitations, dizziness, lightheadedness, LE edema or SOB.
Progress Note - Payment Collector
Subjective
Date of Service: November 26, 2023
Patient seen and examined. He is feeling well. Had solid foods for breakfast. Denies cardiology complaints.
Objective
Labs:
11/26/23 05:39
11/26/23 05:38
Labs
Hgb 14.6 g/dL (13.0-18.0) D 11/26/23 05:39
Hct 41.0 % (39.0-52.0) 11/26/23 05:39
Plt Count 226 10^3/uL (130-400) 11/26/23 05:39
PT 15.5 Sec (11.4-14.6) H 11/25/23 03:28
INR 1.25 11/25/23 03:28
APTT 30.3 Sec (23.4-35.0) 11/25/23 03:28
Sodium 135 mmol/L (135-145) 11/26/23 05:38
Potassium 4.3 mmol/L (3.5-5.1) 11/26/23 05:38
BUN 27 mg/dl (9-20) H 11/26/23 05:38
Creatinine 1.0 mg/dL (0.7-1.3) 11/26/23 05:38
Glucose 143 mg/dl (70-99) H 11/26/23 05:38
Troponins
11/25/23
03:28
Troponin I < 0.012
Vital Signs and I&O:
Vital Signs
Temp Pulse Resp BP Pulse Ox
97.5 F 108 22 148/78 93
11/26/23 07:50 11/26/23 07:50 11/26/23 07:50 11/26/23 07:50 11/26/23 07:50
Vital Signs
Temp Pulse Resp BP Pulse Ox
97.5 F 108 22 148/78 93
11/26/23 07:50 11/26/23 07:50 11/26/23 07:50 11/26/23 07:50 11/26/23 07:50
Intake & Output
11/24/23 11/25/23 11/26/23 11/27/23
06:59 06:59 06:59 06:59
Intake Total 960 / 960
Output Total 1944 / 1944
Balance -985 / -985
--- NOTE | 2023-11-26 12:41 | W.PN.HOSP.TC ---
Today's Communication/Plan
-
Monitor vital signs see plan
Monitor KENDRICK drain
Continue with antibiotics
Hopeful discharge tomorrow once okay with surgery
Assessment / Plan
Assessment / Plan
Sepsis 2/2 Acute Calculous Cholecystitis
�- US and CT show sludge, GB wall thickening and surrounding stranding / inflammation.
�- IV abx.
�- Supportive care with IVFs, antiemetics and pain control.
�-Surgery following,s/p laparoscopic cholecystectomy with IOC. monitor KENDRICK drain
now on regular diet
Permanent Atrial Fibrillation
�- Heart rates in the ED are at times elevated - in part due to pain.
�- Patient is not on any rate-controlling medications at baseline.
�- Monitor on telemetry.
bcx NGTD
�- Begin IV Lopressor at standing doses with holding parameters for now for rate control.
�- Patient is not on any chronic anticoagulation by his
�- resume ASA when cleared by surgery
Cardiology following.
hyponatremia
resolved
Interstitial Lung Disease
�- Stable.� No current or recent complaints.
�- Not presently hypoxemic, etc.
�- Most recent pulmonary testing as an outpatient showed significant improvement from prior. Patient follows up with Dr. Mcknight outpatient
DVT Prophylaxis:� SCDs
Code Status:� Full
General: no acute distress
HEENT: Moist mucous membranes
Respiratory: Clear; No Wheezes, Rales or Rhonchi
Cardiac: S1/S2, Irregular Rhythm, Tachycardia and Murmur (II/ GASPER)
GI: Soft, Non Distended, Normal Bowel Sounds,KENDRICK drain
Musculoskeletal: No Clubbing, No Cyanosis and No Edema
Neuro: AO x 3
Anticipated Discharge: Within 24 hours
Subjective/Interval History
-
Date of Service: November 26, 2023
denies nausea
Objective Data
-
Labs:
Laboratory Results
11/26/23 11/26/23
05:38 05:39
WBC 18.9 H
Hgb 14.6 D
Hct 41.0
Plt Count 226
Sodium 135
Potassium 4.3
Chloride 101
Carbon Dioxide 24
BUN 27 H
Creatinine 1.0
Glucose 143 H
Calcium 8.5
Total Bilirubin 0.9
AST 44
ALT 38
Alkaline Phosphatase 65
Vital Signs:
Vital Signs
Temp Pulse Resp BP Pulse Ox
97.5 F 98 22 115/76 94
11/26/23 07:50 11/26/23 11:49 11/26/23 07:50 11/26/23 11:49 11/26/23 08:00
I&O
11/25/23 11/26/23 11/27/23
06:59 06:59 06:59
Intake Total 960 / 960
Output Total 1944 / 1944
Balance -985 / -985
--- NOTE | 2023-11-26 19:48 | PTCARENOTE ---
Received patient this am AAOx3. Tolerated regular diet well. Pt complained of tenderness at abdominal lap site. Medicated with Toradol with relief. IVF capped. Pt OOB ambulating in room with a steady gait. Made patient comfortable. Cont to
assess patient status.
[2023-11-27] MEDS: ZOSYN 50 IV ×3 (02:52→13:07)
[2023-11-27 05:16] VITALS: BP 151/84
[2023-11-27] MEDS: LOPRESSOR 2.5 MG IV ×2 (05:39→11:54)
[2023-11-27] MEDS: TORADOL 10 MG IV (06:00)
[2023-11-27 07:20] VITALS: BP 135/90
[2023-11-27 07:51] LABS: % Basophils 0.3 % (0-2); % Eosinophils 0.9 % (0-6); % Immature Granulocytes 0.3 % (0-0.5); % Lymphocytes 13.5 % (20.5-51.1); % Monocytes 9.6 % (1.7-9.3); % Neutrophils 75.4 % (42.2-75.2); Absolute Eosinophils 0.1 10^3/uL (0-0.7); Absolute Lymphocytes 1.6 10^3/uL (1.2-3.4); Absolute Monocytes 1.1 10^3/uL (0.1-0.6); Absolute Neutrophils 8.7 10^3/uL (1.4-6.5); Hematocrit 43.6 % (39.0-52.0); Mean Corp Hgb Conc. 34.4 g/dL (33.0-37.0); Mean Corpuscular Hgb 30.9 pg (27.0-31.0); Mean Corpuscular Volume 89.7 fL (80.0-94.0); Mean Platelet Volume 10.5 fL (7.4-10.4); Nucleated Red Blood Cells % 0 % (-); Platelet Count 277 10^3/uL (130-400); Red Blood Cell Count 4.86 10^6/uL (4.70-6.10); Red Cell Dist. Width 12.9 % (11.5-14.5); White Blood Cell Count 11.6 10^3/uL (4.8-10.8)
[2023-11-27 08:15] LABS: ALT (SGPT) 51 U/L (0-50); AST (SGOT) 49 U/L (17-59); Albumin 3.6 g/dl (3.5-5.0); Alkaline Phosphatase 63 U/L (38-126); Blood Urea Nitrogen 30 mg/dl (9-20); Calcium 8.6 mg/dl (8.4-10.2); Carbon Dioxide 24 mmol/L (22-30); Chloride 109 mmol/L (98-107); Estimated Creatinine Clearance 69 ml/min; Glucose 97 mg/dl (70-99); Potassium 4.5 mmol/L (3.5-5.1); Sodium 138 mmol/L (135-145); Total Bilirubin 0.8 mg/dl (0.2-1.3); Total Protein 6.4 g/dl (6.3-8.2); eGFR > 60.00
[2023-11-27] MEDS: PROTONIX IV 40 MG IV (08:43)
[2023-11-27] MEDS: NSS (PRESERVATIVE FREE) 10 ML IV (08:43)
--- NOTE | 2023-11-27 11:21 | W.PN.HOSP.TC ---
Addendum entered and electronically signed by Dallin Maya MD 11/27/23 15:11:
KENDRICK drain is out. Patient for discharge today
Time of discharge 36 minutes
Original Note:
Today's Communication/Plan
-
monitor vitals
see plan
resume ASA if ok with surgery
KENDRICK drain per surgery
cw abx
dc when ok with surgery
Assessment / Plan
Assessment / Plan
Sepsis 2/2 Acute Calculous Cholecystitis
�- US and CT show sludge, GB wall thickening and surrounding stranding / inflammation.
�- IV abx.
�- Supportive care with IVFs, antiemetics and pain control.
�-Surgery following,s/p laparoscopic cholecystectomy with IOC. monitor KENDRICK drain
now on regular diet
Permanent Atrial Fibrillation
�- Heart rates in the ED are at times elevated - in part due to pain.
�- Patient is not on any rate-controlling medications at baseline.
�- Monitor on telemetry.
bcx NGTD
�- Begin IV Lopressor at standing doses with holding parameters for now for rate control. patient doesnot want any BB on dc. he has also refused to be put on AC
�- Patient is not on any chronic anticoagulation by his
�- resume ASA when cleared by surgery
Cardiology following.
hyponatremia
resolved
Interstitial Lung Disease
�- Stable.� No current or recent complaints.
�- Not presently hypoxemic, etc.
�- Most recent pulmonary testing as an outpatient showed significant improvement from prior. Patient follows up with Dr. Mcknight outpatient
Morbid obesity 2/2 excess calories
DVT Prophylaxis:� SCDs
Code Status:� Full
General: no acute distress
HEENT: Moist mucous membranes
Respiratory: Clear; No Wheezes, Rales or Rhonchi
Cardiac: S1/S2, Irregular Rhythm, Tachycardia and Murmur (II/ GASPER)
GI: Soft, Non Distended, Normal Bowel Sounds,KENDRICK drain
Musculoskeletal: No Clubbing, No Cyanosis and No Edema
Neuro: AO x 3
Anticipated Discharge: Today
Subjective/Interval History
-
Date of Service: November 27, 2023
has some pain at KENDRICK site
Objective Data
-
Labs:
Laboratory Results
11/27/23
07:19
WBC 11.6 H
Hgb 15.0
Hct 43.6
Plt Count 277 D
Sodium 138
Potassium 4.5
Chloride 109 H
Carbon Dioxide 24
BUN 30 H
Creatinine 1.1
Glucose 97
Calcium 8.6
Total Bilirubin 0.8
AST 49
ALT 51 H
Alkaline Phosphatase 63
Vital Signs:
Vital Signs
Temp Pulse Resp BP Pulse Ox
98.6 F 94 18 135/90 96
11/27/23 07:20 11/27/23 07:20 11/27/23 07:20 11/27/23 07:20 11/27/23 07:20
I&O
11/26/23 11/27/23 11/28/23
06:59 06:59 06:59
Intake Total 960 / 960 1400 / 1400
Output Total 1945 / 1944 415 / 415
Balance -985 / -985 985 / 985
--- NOTE | 2023-11-27 14:57 | W.PN.GS2 ---
Today's Communication / Plan
-
Drain DC'ed
OK for DC with PO abx
Assessment / Plan
-
Patient is a 67 yo M POD#2 s/p laparoscopic cholecystectomy with IOC
No postoperative concerns.
-- Regular diet
-- Pain control: Tylenol, Toradol, Oxycodone, IV Dilaudid for breakthrough
-- HLIV
-- Abx: Zosyn, plan for 4 days post-op
-- KENDRICK drain removed
-- OK for DC with additional PO abx to complete 4 day post-op course
Subjective Data
-
Date of Service: November 27, 2023
Doing well post-op, no complaints
Objective Data
-
Intake and Output
11/26/23 11/27/23 11/28/23
06:59 06:59 06:59
Intake Total 960 / 960 1400 / 1400
Output Total 1945 / 1945 415 / 415
Balance -985 / -985 985 / 985
Intake:
Oral fluids 960 / 960 900 / 900
IV fluids (Total) 400 / 400
IV piggybacks 100 / 100
Output:
Drain Output (Total)
Right Dayron-Garcia
Urine, Voided 1920 / 1920 400 / 400
Other:
Number of approximated MODERATE 5
amounts of urine
Vital Signs
Temp Pulse Resp BP Pulse Ox
98.6 F 84 18 135/92 96
11/27/23 07:20 11/27/23 11:54 11/27/23 07:20 11/27/23 11:54 11/27/23 12:33
Lab Results
11/27/23 07:19
11/27/23 07:19
Calcium 8.6 mg/dl (8.4-10.2) 11/27/23 07:19
Total Bilirubin 0.8 mg/dl (0.2-1.3) 11/27/23 07:19
AST 49 U/L (17-59) 11/27/23 07:19
ALT 51 U/L (0-50) H 11/27/23 07:19
Alkaline Phosphatase 63 U/L (38-126) 11/27/23 07:19
Total Protein 6.4 g/dl (6.3-8.2) 11/27/23 07:19
Albumin 3.6 g/dl (3.5-5.0) 11/27/23 07:19
Physical Exam
-
Gen: NAD
Abd: soft, approp ttp, incisions cdi, drain ss
--- NOTE | 2023-11-27 15:11 | W.DCSUMMARY ---
Discharge Summary
Discharge Data
Date of Admission: 11/25/23
Date of Discharge: 11/27/23
-
Pending Results: No
Hospital Course
67-year-old male with past medical history of morbid obesity, interstitial lung disease, pulmonary fibrillation came to the hospital with sepsis secondary to acute calculus cholecystitis. Patient got a CT scan which was consistent with
cholecystitis. Patient was seen by surgery and was taken for laparoscopic cholecystectomy. Patient had a KENDRICK drain postop. KENDRICK drain was discontinued prior to discharge. Patient was initially treated with IV antibiotic which was later transitioned
to oral antibiotics. Blood cultures were negative throughout hospitalization. Patient also had permanent atrial fibrillation with occasional rapid ventricular rate for which he was kept on Lopressor. Patient continued to refuse long-term
beta-lani and anticoagulation. He was seen by cardiology throughout hospitalization. Once patient symptoms improved, he was then discharged home with instructions to follow-up with all his physicians outpatient.
Discharge Plan
-
Patient Disposition: Home (Routine Discharge)
Discharge Diagnosis/Procedures: Sepsis secondary to acute cholecystitis status post Laparoscopic cholecystectomy with cholangiogram
Permanent atrial fibrillation
Condition: Fair
Diet: No restrictions
Activity: No strenuous activity
Driving Restrictions: As prior to admission
Bathing Restrictions: OK to Shower
Activity Restrictions/Additional Instructions:
Instructions following Laparoscopic Cholecystectomy
Please call [phone] if you have any questions or concerns after your surgery.
Wound Care:
Your incisions are covered with skin glue which will come off on its own in 5-10 days.
It is ok to shower the day after your surgery. Do not scrub the incisions, let soap and water wash over them and pat dry.
� Bruising around your incisions is normal.
� Using ice packs will help minimize this swelling.
� No swimming or soaking incisions for 1 week.
� Your stitches will dissolve and do not need to be removed.
Urinary retention:
If you are unable to urinate 6-8 hours after your surgery, please call [phone] to discuss further management.
Activity:
No heavy lifting more than 15 pounds for the next 3 weeks, then you may gradually lift heavier objects as tolerated by discomfort. Otherwise activity as tolerated by your comfort level.
Pain Management:
Use Tylenol, ibuprofen and ice packs to treat your pain.
� You may take 650 milligrams of Tylenol (Max 3 grams per day) every 6 hours, and 600 mg of ibuprofen also every 6 hours. (you can alternate them every 3 hours)
� You may use an ice pack to your incision as needed.
� If you still have pain not controlled by these measures, take your prescription pain medication as prescribed.
Medications:
You may resume your home medications.
Bowel Medications:
Prescription pain medication can make you constipated. If you take this medication, also take colace 100 mg twice daily (this is over the counter). If this is not sufficient, you may take Miralax (polyethylene glycol) to help move your bowels.
Diet:
After your procedure, there are no dietary restrictions. However, you may notice some loose stools with fatty meals for up to 4 weeks after surgery. If this is the case, please adjust to a low fat diet as needed.
Driving restrictions:
No driving if you are taking prescription pain medication or if you think your normal reaction time and attentiveness has been slowed by your surgery.
Things to Look out for:
Worsening Abdominal pain, fever, jaundice, redness or drainage from incision
Call Doctor for:
Please call if you notice worsening redness or drainage from incision(s) lasting longer than 5 days after your surgery, any foul-smelling drainage from the incision, pain not controlled by pain medications, persistent nausea and vomiting, or for any
fevers greater than 101.3 F. The number for questions/concerns is [phone]
Follow-up:
A follow-up appointment will be scheduled with your surgeon in 3-4 weeks. Please call prior to your appointment if you have any questions or concerns. [phone]
Referrals:
Vladimir Lofton MD [Active] - 12/24/23 8:00 am (You have cardiology follow up with Dr. Lofton on December 23 at 8 am in [address] in the [place]. If you are unable to make this appointment please call [phone] to reschedule. )
Kerry Pena MD [Family Provider] - in less than 1 week
Donald Cook MD [Active] - in two to four weeks
Prescriptions:
New
acetaminophen 325 mg Tablet
650 mg PO Q4HPRN PRN (Reason: mild pain/MCKEON/temp> 100.4F) Qty: 30 0RF
oxycodone 5 mg Tablet
5 mg PO Q4HPRN PRN (Reason: severe pain) Qty: 10 0RF
pantoprazole [Protonix] 40 mg tablet,delayed release (DR/EC)
40 mg PO DAILY Qty: 30 0RF
amoxicillin-pot clavulanate 875-125 mg tablet
1 tab PO BID Qty: 8 0RF
Continued
multivitamin Tablet
1 tab PO DAILY
aspirin 81 mg Tablet,Chewable
81 mg PO DAILY
saw palmetto 500 mg Capsule
500 mg PO BID
cholecalciferol (vitamin D3) 25 mcg (1,000 unit) Tablet
25 mcg PO DAILY
Discharge Orders:
Discharge Patient (As Directed); Ordered 11/27/23
Ordered By: Dallin Maya
Discharge Date and Time
Discharge Date/Time: 11/27/23 16:29
--- NOTE | 2023-11-27 16:32 | CM ---
CM following re: d/c planning
Chart reviewed
Pt is medically stable for d/c
Pt is functionally independent and has no needs
PLAN; d/c home no needs
== END 2023-11-27 16:29 | disposition home or self-care (01) | DRG 854 ==
LOC: 4 EAST ACU 06:22
PROVIDERS: ADMITTING PHYSICIAN Hospitalist; ATTENDING PHYSICIAN Internal Medicine; EMERGENCY PHYSICIAN Student in an Organized Health Care Education/Training Program; FAMILY PHYSICIAN Family Medicine; OTHER PHYSICIAN Nuclear Medicine Nuclear Cardiology; OTHER PHYSICIAN Surgery
PROC: 0FT44ZZ Resection of Gallbladder, Percutaneous Endoscopic Approach (ICD-10-PCS; 2023-11-25)
PROC: BF141ZZ Fluoroscopy of Gallbladder, Bile Ducts and Pancreatic Ducts using Low Osmolar Contrast (ICD-10-PCS; 2023-11-25)
DX: A41.9 Sepsis, unspecified organism (principal); E87.1 Hypo-osmolality and hyponatremia; K80.00 Calculus of gallbladder with acute cholecystitis without obstruction; I48.21 Permanent atrial fibrillation; J84.9 Interstitial pulmonary disease, unspecified; Z68.41 Body mass index [BMI] 40.0-44.9, adult; Z79.82 Long term (current) use of aspirin; K66.0 Peritoneal adhesions (postprocedural) (postinfection); E66.01 Morbid (severe) obesity due to excess calories; K82.A1 Gangrene of gallbladder in cholecystitis
CPT/HCPCS: 88304; 74177; 74300; 76000; 76700; 80053; 81003; 81015; 83690; 84484; 85025; 85610; 85730; 86803; 87040; 93005; 99285; A4300; Q9967